=== PATIENT | female | born 1980 ===

== ENCOUNTER 2018-03-10 22:25 | Inpatient (IN) | payer OTHER ==
[~2018-03-10 22:25] MED LIST: ROPIVACAINE 5MG/ML 20ML VIAL ONE; SODIUM CHLORIDE 0.9% 100 ML BAG ONE; fentaNYL (PF) 50 MCG/ML 5 ML AMP ONE
[2018-03-10] MEDS ORDERED: OXYTOCIN 10 UNIT/ML 1 ML VIAL IM PRN (23:02)
[2018-03-10] MEDS ORDERED: METHYLERGONOVINE 0.2 MG/ML 1 ML AMP IM PRN (23:02)
[2018-03-10] MEDS ORDERED: CARBOPROST TROMETHAMINE 250 MCG/ML 1 ML AMP IM PRN (23:02)
[2018-03-10] MEDS ORDERED: TERBUTALINE 1 MG/ML VIAL SQ PRN (23:02)
[2018-03-10] MEDS ORDERED: LIDOCAINE 1% INJ 10MG/ML (20 ML MDV) SQ PRN (23:02)
[2018-03-10] MEDS: LACTATED RINGERS 1,000 ML IV SCH (23:32)
[2018-03-10 23:37] VITALS: BMI 37.4
[2018-03-10 23:50] LABS: Basophils % (A) 0 %; Eosinophils # (A) 0.2 k/uL (0-0.7); Eosinophils % (A) 2 %; HCT 34.7 % (34.0-46.0); HGB 11.6 gm/dL (11.4-16.0); Lymphocytes # (A) 1.9 k/uL (1.0-4.8); Lymphocytes % (A) 16 %; MCH 25.7 pg (25.0-35.0); MCHC 33.5 g/dL (31.0-37.0); MCV 76.8 fL (80.0-100.0); Mean Platelet Volume 7.3; Monocytes # (A) 0.6 k/uL (0-1.0); Monocytes % (A) 5 %; Neutrophils # (A) 9.6 k/uL (1.3-7.7); Neutrophils % (A) 77 %; Platelet Count 224 k/uL (150-450); RBC 4.51 m/uL (3.80-5.40); RDW 14.5 % (11.5-15.5); WBC 12.5 k/uL (3.8-10.6)
[2018-03-11] MEDS ORDERED: OXYTOCIN 20 UNITS/1000 ML NS 1,000 ML IV SCH (05:00)
--- NOTE | 2018-03-11 07:34 | P.HPOB ---
History of Present Illness H&P Date: 03/11/18 This is a 37-year-old white female 1 para 0 EDC 03/23/2018 at 38-2/7 weeks' gestation. Patient presents this morning with spontaneous amniorrhexis which occurred last night, clear fluid. She is in active labor at this time, epidural has been placed. Fetus is been active throughout the . Past medical history is essentially negative. Past surgical history ACL repair 2008, left. Current medications vitamins. ALLERGIES none known. Social history is significant for never having been a smoker, patient is a pharmacist at a local [employer], she denies alcohol or drug use. She is recently . Obstetric history is significant for blood type B+, rubella status nonimmune. VDRL testing, urine culture, gonorrhea and chlamydia cultures, hepatitis B surface antigen, HIV testing, urine culture all negative. Group B strep cultures negative. One-hour Glucola 108. Family history is significant for history of schizophrenia in a maternal uncle. On exam this is a pleasant white female, she is 5 foot 4 inches, 218 pounds, blood pressure 136/97 on admission. Vital signs are otherwise stable and she is afebrile. The general physical exam is within normal limits. Chest is clear in all thakur. Extremities reveal no edema. Cervix is 8 cm at time of this dictation, 90% effaced, -1 station. Artificial amniorrhexis reveals clear fluid. heart rate is consistent with reactive NST. Impression: 38-2/7 weeks intrauterine , active spontaneous labor, advanced maternal age, rubella status nonimmune. Plan: Continue close maternal and surveillance. Anticipate normal spontaneous vaginal delivery. Review of Systems Negative except as in HPI Constitutional: Reports as per HPI Past Medical History Past Medical History: No Reported History History of Any Multi-Drug Resistant Organisms: None Reported Additional Past Surgical History / Comment(s): Left ACL repair Past Anesthesia/Blood Transfusion Reactions: No Reported Reaction Past Psychological History: No Psychological Hx Reported Smoking Status: Never smoker - Past Family History Mother Family Medical History: No Reported History Medications and Allergies Allergies Allergy/AdvReac Type Severity Reaction Status Date / Time No Known Allergies Allergy Verified 03/10/18 22:34 Exam Vital Signs Temp Pulse Resp BP Pulse Ox 03/10/18 22:34 97.3 F L 83 15 136/97 98 Intake and Output 03/10/18 03/11/18 03/11/18 22:59 06:59 14:59 Intake Total 50 Balance 50 Intake: Other 50 Other: Weight 98.883 kg 98.883 kg See dictation please under HPI Results Result Diagrams: 03/10/18 23:30 Abnormal Lab Results - Last 24 Hours (Table) 03/10/18 Range/Units 23:30 WBC 12.5 H (3.8-10.6) k/uL MCV 76.8 L (80.0-100.0) fL Neutrophils # 9.6 H (1.3-7.7) k/uL Assessment and Plan Assessment: 38-2/7 weeks intrauterine , spontaneous active labor, advanced maternal age, rubella status nonimmune. All signs reassuring Plan: Continue close maternal and surveillance. Anticipate normal spontaneous vaginal delivery. Time with Patient: Less than 30
[2018-03-11] MEDS ORDERED: hydrALAZINE HCL 20 MG/ML 1 ML VIAL IVP PRN ×2 (08:37)
[2018-03-11] MEDS ORDERED: LABETALOL 5 MG/ML VIAL MDV IVP PRN ×2 (08:37)
[2018-03-11] MEDS ORDERED: diphenhydrAMINE 50 MG/ML 1 ML VIAL IVP PRN ×2 (10:16)
[2018-03-11] MEDS ORDERED: LANOLIN CREAM 5 GM TUBE TOPICAL PRN (10:16)
[2018-03-11] MEDS ORDERED: ACETAMINOPHEN TAB 325 MG TAB PO PRN (10:16)
[2018-03-11] MEDS ORDERED: BENZOCAINE/MENTHOL SPRAY 1 GM/SPRAY AEROSOL TOPICAL PRN (10:16)
[2018-03-11] MEDS ORDERED: ZOLPIDEM 5 MG TAB PO PRN (10:16)
[2018-03-11] MEDS ORDERED: diphenhydrAMINE ELIXIR 25 MG/10 ML CUP PO PRN (10:16)
[2018-03-11] MEDS ORDERED: HYDROCORTISONE 2.5% RECTAL CREAM 30 GM TUBE RECTAL PRN (10:16)
[2018-03-11] MEDS ORDERED: diphenhydrAMINE 50 MG CAP PO PRN (10:16)
[2018-03-11] MEDS ORDERED: MEASLES-MUMPS-RUBELLA VACC/PF 12,500 UNIT/0.5 ML VIAL SQ ONE (10:16)
[2018-03-11] MEDS ORDERED: WITCH HAZEL 1 EACH MED..PAD TOPICAL PRN (10:16)
[2018-03-11] MEDS ORDERED: SIMETHICONE 80 MG CHEWABLE PO PRN (10:16)
[2018-03-11] MEDS ORDERED: diphenhydrAMINE 25 MG CAP PO PRN (10:16)
--- NOTE | 2018-03-11 10:16 | P.PROBDLV ---
Vaginal Delivery Note - . Vaginal Delivery Note: This is a 28-year-old female 1 para 0 EDC 03/23/2018 at 38-2/7 weeks' gestation. Patient presented last night with spontaneous amniorrhexis which occurred at home, clear fluid. is essentially unremarkable, group B strep cultures negative, blood type B+, rubella status nonimmune. Please see dictated history and physical for details. Oxytocin was started. Epidural was placed per her request. She progressed through the first stage of labor and became completely dilated. The perineal body was prepped and draped in usual sterile fashion. heart rate was reassuring throughout the first and second stages of labor. With excellent maternal expulsive efforts the infant's head delivered occiput anterior and restituted accordingly. There was no nuchal cord noted. The right or anterior shoulder was gently and easily delivered from underneath the pubic symphysis at which time the oropharynx, nasopharynx, and external nares were all bulb suctioned on the perineal body. Patient was officially delivered of a liveborn female infant at 1003 hrs. Umbilical cord was doubly clamped and ligated, she was handed to waiting nurses for evaluation where scores of 9 and 10 at one and 5 minutes respectively were given. Placenta delivered spontaneously, it was inspected and noted to be intact with trivascular cord at 1006 hours. Uterus is then massaged. Inspection of cervix , vagina, perineum, perirectal and periurethral areas revealed a very small left perineal laceration that was superficial, 1 cm, not bleeding and therefore not repaired with suture. Fundus is firm and in the midline, symmetric and 18 week size upon completion of delivery. All sponge needle and instrument counts are correct. weighs 6 lbs. 10 oz. or 3015 g. Patient and family are allowed to begin the bonding experience in the LDR.
[2018-03-11] MEDS: SENNOSIDES-DOCUSATE SODIUM 1 EACH TAB PO SCH (21:19)
[2018-03-12] MEDS: LACTATED RINGERS 1,000 ML IV SCH (04:26)
[2018-03-12] MEDS: SENNOSIDES-DOCUSATE SODIUM 1 EACH TAB PO SCH ×2 (08:05→21:30)
--- NOTE | 2018-03-12 09:35 | P.DS ---
Providers Date of admission: 03/10/18 22:47 Expected date of discharge: 03/12/18 Attending physician: Janette Whitney Primary care physician: Janette Whitney [facility] Course: This is a 37-year-old female 1 para 0 EDC 03/23/2018 at 38-2/7 weeks' gestation. Patient presented yesterday in active spontaneous labor. is unremarkable, group B strep cultures negative, rubella status nonimmune, blood type B positive. Please see dictated history and physical for details. Epidural was placed per her request. Oxytocin augmentation was started and titrated. She went on to deliver a liveborn female infant with scores of 9 and 10 at one and 5 minutes respective. Infant weighed 6 lbs. 10 oz. or 3015 g. There was an estimated blood loss recorded of 200 mL's. Please see my dictated delivery note for details. This morning the patient is doing well. She is voiding, ambulating, and passing flatus without difficulty. Breast-feeding is going well. Extremities are negative. Chest is clear. Fundus is firm and midline, symmetric and 18 week size. Perineal body is clean and dry. Patient is judged to be in excellent condition for discharge home. She will follow-up with me in the office in 6 weeks. I have reminded her no intercourse, tampons or douching. She will use [id number] Advil or Aleve , or Motrin 200 mg pills, 3 every 6 hours as needed. I've asked her to call me with any fevers shakes or chills, foul smelling or copious lochia, with the passage of large blood clots, with any pain not alleviated by [id number] products, or with any concerns. I have given her prescription for a double electric breast pump. She will continue taking her vitamins daily. Follow-up with me in the office in 6 weeks or as needed. Patient Condition at Discharge: Good Plan - Discharge Summary Discharge Rx Participant: No Follow up Appointment(s)/Referral(s): Janette Whitney MD [Primary Care Provider] - 6 Weeks Discharge Disposition: HOME SELF-CARE
[2018-03-12 17:16] VITALS: RESP 16
[2018-03-12] MEDS: IBUPROFEN 600 MG TAB PO PRN (17:19)
[2018-03-12 23:50] VITALS: TEMP 98
[2018-03-13] MEDS: IBUPROFEN 600 MG TAB PO PRN ×2 (08:17→17:08)
[2018-03-13 08:40] VITALS: PULSE 83
[2018-03-13 15:56] VITALS: BP 150/83
== END 2018-03-13 18:01 | disposition home or self-care (01) | DRG 807 ==
LOC: FBPOP 22:25 → 4FBP 22:47
PROVIDERS: ADMIT Obstetrics & Gynecology Obstetrics; ATTEND Obstetrics & Gynecology
PROC: 00HU33Z Insertion of Infusion Device into Spinal Canal, Percutaneous Approach (ICD-10-PCS; principal; 2018-03-11)
PROC: 10E0XZZ Delivery of Products of Conception, External Approach (ICD-10-PCS; principal; 2018-03-11)
PROC: 3E0R3NZ Introduction of Analgesics, Hypnotics, Sedatives into Spinal Canal, Percutaneous Approach (ICD-10-PCS; principal; 2018-03-11)
DX: O70.9 Perineal laceration during delivery, unspecified (principal); Z37.0 Single live birth; Z3A.38 38 weeks gestation of pregnancy; Z81.8 Family history of other mental and behavioral disorders
CPT/HCPCS: 59025; 84112; 85025; 86850; 86900; 86901; 90471; 90707; 99213

== ENCOUNTER → 2019-11-16 | Outpatient (CLI) | payer BC ==
--- NOTE | 2019-11-16 11:28 | US ---
EXAMINATION TYPE: US thyroid st tissue head/neck DATE OF EXAM: 11/16/2019 COMPARISON: NONE CLINICAL HISTORY: E04.1 Thyroid nodule. Palpable noted by patient right mid neck. GLAND SIZE: Right Lobe: 4.2 x 2.1 x 1.6 cm Overall Parenchyma: homogenous Left Lobe: 4.2 x 1.4 x 1.0 cm Overall Parenchyma: homogeneous Isthmus Thickness: 0.4 cm NODULES RIGHT: # of nodules measured on right: 1 1. 2.0 X 1.47 x 1.2 cm hypoechoic predominantly cystic nodule at the mid pole with well-defined ma rgins. This nodule is wider than tall and shows no intranodular vascularity. LEFT: # of nodules measured on left: 0 ISTHMUS: # of nodules measured in the isthmus: 0 Bilateral neck scanned: no evidence of lymphadenopathy. Normal-sized thyroid with 2.0 cm cystic nodule IMPRESSION: As above. Note of 2.0 cm cystic right thyroid nodule but is a benign TR 1 lesion.
== END | disposition home or self-care (01) ==
LOC: RADUSWWP 10:53
PROVIDERS: ATTEND Family Medicine
DX: E04.1 Nontoxic single thyroid nodule (principal)
CPT/HCPCS: 76536

== ENCOUNTER → 2021-05-30 | Outpatient (CLI) | payer BC ==
--- NOTE | 2021-06-03 09:02 | MM ---
Reason for exam: screening (asymptomatic). Baseline mammogram. History: Patient had first child at age 36. Physical Findings: Nurse did not find any significant physical abnormalities on exam. MG 3D Screening Mammo W/Cad Bilateral CC and MLO view(s) were taken. The breast tissue is heterogeneously dense. This may lower the sensitivity of mammography. There is no discrete abnormality. No persisting abnormality on 3D images. ASSESSMENT: Negative, BI-RAD 1 RECOMMENDATION: Routine screening mammogram of both breasts in 1 year.
== END | disposition home or self-care (01) ==
LOC: RADMAMWWP 10:55
PROVIDERS: ATTEND Family Medicine
DX: Z12.39 Encounter for other screening for malignant neoplasm of breast (principal)
CPT/HCPCS: 77063; 77067

== ENCOUNTER → 2021-05-30 | Outpatient (CLI) | payer BC ==
[2021-05-30 20:02] LABS: T4, Free (Free Thyroxine) 1.3 ng/dL (0.800-1.800)
== END | disposition home or self-care (01) ==
LOC: LABWHC1 11:43
PROVIDERS: ATTEND Internal Medicine Endocrinology, Diabetes & Metabolism
DX: E04.1 Nontoxic single thyroid nodule (principal)
CPT/HCPCS: 36415; 84439; 84443

== ENCOUNTER → 2022-05-29 | Outpatient (CLI) | payer BC ==
[2022-05-29 23:10] LABS: T4, Free (Free Thyroxine) 1.07 ng/dL (0.800-1.800)
== END | disposition home or self-care (01) ==
LOC: LABWHC1 13:30
PROVIDERS: ATTEND Internal Medicine Endocrinology, Diabetes & Metabolism
DX: E04.1 Nontoxic single thyroid nodule (principal)
CPT/HCPCS: 36415; 84439; 84443

== ENCOUNTER → 2022-09-30 | Outpatient (CLI) | payer BC ==
--- NOTE | 2022-09-30 17:07 | US ---
EXAMINATION TYPE: US pelvic complete DATE OF EXAM: 09/30/2022 COMPARISON: NONE CLINICAL INDICATION: Female, 41 years old with history of N92.6 IRREGULAR MENSES; Irregular menses TECHNIQUE: Transabdominal (TA), patient refusing TV exam at this time Date of LMP: unknown EXAM MEASUREMENTS: Uterus: 8.5 x 4.2 x 6.3 cm Endometrial Stripe: 0.7 cm Right Ovary: 3.2 x 2.1 x 1.6 cm Left Ovary: 3.1 x 2.4 x 1.6 cm 1. Uterus: Retroverted appears wnl 2. Endometrium: wnl 3. Right Ovary: dominant follicle = 1.9cm 4. Left Ovary: follicles noted 5. Bilateral Adnexa: wnl 6. Posterior cul-de-sac: wnl IMPRESSION: 1. No evidence for acute pelvic process. 2. Endometrium within normal limits for thickness.
== END | disposition home or self-care (01) ==
LOC: RADUSWWP 09:57
PROVIDERS: ATTEND Family Medicine
DX: N92.6 Irregular menstruation, unspecified (principal)
CPT/HCPCS: 76856

== ENCOUNTER → 2022-11-12 | Outpatient (CLI) | payer BC ==
--- NOTE | 2022-11-13 08:32 | MM ---
Reason for Exam: Screening (asymptomatic). Last mammogram was performed 1 year(s) and 5 month(s) ago. Patient History: Menarche at age 9. First Full-Term at age 36. Late child-bearing (after 30). Patient has history of breast feeding. Risk Values: Paige 5 year model risk: 0.8%. NCI Lifetime model risk: 9.2%. Prior Study Comparison: 05/30/2021 Bilateral Screening Mammogram, [facility]. Tissue Density: The breast tissue is heterogeneously dense. This may lower the sensitivity of mammography. Findings: Analyzed By CAD. There is no suspicious group of microcalcifications or new suspicious mass in either breast. Overall Assessment: Negative, BI-RAD 1 Management: Screening Mammogram of both breasts in 1 year. . Patient should continue monthly self-breast exams. A clinical breast exam by your physician is recommended on an annual basis. This exam should not preclude additional follow-up of suspicious palpable abnormalities. Note on Paige scores and lifetime risk: 1. A Paige score greater than 3% is considered moderate risk. If this is the case, consider specialist referral to assess eligibility for a risk reducing agent. 2. If overall lifetime risk for the development of breast cancer is 20% or higher, the patient may qualify for future screening with alternating mammogram and breast MRI. Electronically signed and approved by: Austin Hill M.D. Radiologis
== END | disposition home or self-care (01) ==
LOC: RADMAMWWP 09:06
PROVIDERS: ATTEND Family Medicine
DX: Z12.31 Encounter for screening mammogram for malignant neoplasm of breast (principal)
CPT/HCPCS: 77063; 77067

== ENCOUNTER → 2022-12-11 | Outpatient (CLI) | payer BC | END | disposition home or self-care (01) | LOC: LABWHC1 13:26 | PROVIDERS: ATTEND Internal Medicine Endocrinology, Diabetes & Metabolism | DX: E04.1 Nontoxic single thyroid nodule (principal) | CPT/HCPCS: 36415; 84439; 84443 ==

== ENCOUNTER → 2022-12-11 | Outpatient (CLI) | payer BC ==
--- NOTE | 2022-12-11 14:51 | US ---
EXAMINATION TYPE: US thyroid st tissue head/neck DATE OF EXAM: 12/11/2022 COMPARISON: Thyroid ultrasound 06/03/2022, 12/16/2021, 11/16/2019. CLINICAL INDICATION: Female, 41 years old with history of E04.1 NONTOXIC SINGLE THYROID NODULE; RT th yroid nodule F/U GLAND SIZE: Right Lobe: 5.0x1.7x1.4 cm Overall Parenchyma: homogenous Left Lobe: 4.5x1.2x1.2 cm Overall Parenchyma: homogeneous Isthmus Thickness: 0.5 cm NODULES RIGHT: # of nodules measured on right: 1 1. 0.5 X 0.4 x 0.4 cm, upper mid, solid or almost completely solid, hypoechoic nodule, which is wid er than tall, with ill-defined margins, without echogenic foci. TR 4. Prior size: 0.6 x 0.4 x 0.4 cm LEFT: # of nodules measured on left: 0 ISTHMUS: # of nodules measured in the isthmus: 0 Bilateral neck scanned, no evidence of lymphadenopathy. IMPRESSION: Stable subcentimeter right thyroid lobe TR 4 nodule. No new or enlarging nodules. 2017 ACR TI-RADS LEVEL: TR-RADS 4 - Moderately Suspicious: Follow if > 1 cm, FNA if > 1.5 cm *Highest TI-RADS level nodule reported
== END | disposition home or self-care (01) ==
LOC: RADUSWWP 14:17
PROVIDERS: ATTEND Internal Medicine Endocrinology, Diabetes & Metabolism
DX: E04.1 Nontoxic single thyroid nodule (principal)
CPT/HCPCS: 76536

== ENCOUNTER → 2024-03-29 | Outpatient (CLI) | payer BC ==
--- NOTE | 2024-03-30 17:12 | MM ---
Reason for Exam: Screening (asymptomatic). Last mammogram was performed 1 year(s) and 5 month(s) ago. Patient History: Menarche at age 9. First Full-Term at age 36. Late child-bearing (after 30). Patient has history of breast feeding. Last menstrual period: 03/25/2024 Risk Values: Paige 5 year model risk: 0.9%. NCI Lifetime model risk: 9.0%. Prior Study Comparison: 05/30/2021 Bilateral Screening Mammogram, [facility]. 11/12/2022 Bilateral MG 3D screening mammo w/cad, [facility]. Tissue Density: There are scattered areas of fibroglandular density. Findings: Analyzed By CAD. There is no suspicious group of microcalcifications or new suspicious mass in either breast. Overall Assessment: Negative, BI-RAD 1 Management: Screening Mammogram of both breasts in 1 year. Patient should continue monthly self-breast exams. A clinical breast exam by your physician is recommended on an annual basis. This exam should not preclude additional follow-up of suspicious palpable abnormalities. Note on Paige scores and lifetime risk: 1. A Paige score greater than 3% is considered moderate risk. If this is the case, consider specialist referral to assess eligibility for a risk reducing agent. 2. If overall lifetime risk for the development of breast cancer is 20% or higher, the patient may qualify for future screening with alternating mammogram and breast MRI. [facility], , 03/30/2024 5:09 PM. Electronically signed and approved by: Gregor Saldana M.D. Radiologist
== END | disposition home or self-care (01) ==
LOC: RADMAMWWP 10:23
PROVIDERS: ATTEND Family Medicine
DX: Z12.31 Encounter for screening mammogram for malignant neoplasm of breast (principal); R92.323 Mammographic fibroglandular density, bilateral breasts
CPT/HCPCS: 77063; 77067